=== PATIENT | female | born 1975 | race Native Hawaiian/Other Pacific Islander ===

== ENCOUNTER 2022-08-25 13:59 | Emergency (ER) | payer OTHER ==
[~2022-08-25] VITALS: Ht 175.3 cm; Wt 99.8 kg
[2022-08-25 16:35] VITALS: BP 131/75; TEMP 98.1
== END 2022-08-25 16:35 | disposition home or self-care (01) ==
LOC: ED 13:59
DX: S92.535A Nondisplaced fracture of distal phalanx of left lesser toe(s), initial encounter for closed fracture (principal); W22.03XA Walked into furniture, initial encounter; Y92.89 Other specified places as the place of occurrence of the external cause
CPT/HCPCS: 99282

== ENCOUNTER 2022-11-14 10:24 | Emergency (ER) | payer OTHER ==
[~2022-11-14] VITALS: Ht 175.3 cm; Wt 104.3 kg
[2022-11-14 12:20] VITALS: BP 129/79; TEMP 98.6
== END 2022-11-14 12:20 | disposition home or self-care (01) ==
LOC: ED 10:24
DX: K04.7 Periapical abscess without sinus (principal); K02.9 Dental caries, unspecified
CPT/HCPCS: 99282